=== PATIENT | male | born 1985 | race Caucasian/White ===

== ENCOUNTER 2019-05-20 00:04 | Emergency (ER) | payer OTHER ==
[2019-05-20] MEDS ORDERED: Bacitracin Oint 1 GM U/D Packet TOP ONE (00:29)
--- NOTE | 2019-05-20 00:32 | EDM.PDOC ---
ED HPI GENERAL MEDICAL PROBLEM - General Chief Complaint: Upper Extremity Injury/Pain Stated Complaint: STAPLE IN RIGHT RING FINGER Time Seen by Provider: 05/20/19 00:30 Source of Information: Reports: Patient History Limitations: Reports: No Limitations - History of Present Illness INITIAL COMMENTS - FREE TEXT/NARRATIVE: 33-year-old male accidentally shot a staple through the distal ring finger on his right hand. This occurred less than 1 hour prior to coming in. His tetanus status is current. Onset: Sudden Duration: Hour(s): (1 hour ago) Location: Reports: Upper Extremity, Right Associated Symptoms: Reports: No Other Symptoms Right Finger-Ring Pain Score (Numeric/FACES): 5 - Related Data Allergies Allergy/AdvReac Type Severity Reaction Status Date / Time Penicillins Allergy Rash Verified 05/20/19 00:29 Home Meds: Home Meds NK [No Known Home Meds] 05/20/19 [History] Review of Systems - Review of Systems Review Of Systems: See Below Constitutional: Denies: Fever Respiratory: Reports: No Symptoms Cardiovascular: Reports: No Symptoms Neurological: Denies: Paresthesia ED EXAM, GENERAL - Physical Exam Exam: See Below Exam Limited By: No Limitations General Appearance: Alert, No Apparent Distress Respiratory/Chest: No Respiratory Distress Extremities: Other (Exam is otherwise limited to the right hand. A fairly large industrial staple is embedded into the palmar aspect of the ring finger at the PIP joint towards the ulnar side.) Course - Vital Signs Last Recorded V/S: Last Vital Signs Temp 97.1 F 05/20/19 00:36 Pulse 68 05/20/19 00:36 Resp 17 05/20/19 00:36 BP 111/72 05/20/19 00:36 Pulse Ox 97 05/20/19 00:36 - Orders/Labs/Meds Meds: Medications Discontinued Medications Generic Name Dose Route Start Last Admin Trade Name Freq PRN Reason Stop Dose Admin Bacitracin 1 dose 05/20/19 00:29 05/20/19 00:54 Bacitracin Oint 1 Gm TOP 05/20/19 00:30 1 dose ONETIME ONE Administration Lidocaine HCl 5 ml 05/20/19 00:29 05/20/19 00:54 Xylocaine-Mpf 1% INJECT 05/20/19 00:30 5 ml ONETIME ONE Administration - Re-Assessments/Exams Free Text/Narrative Re-Assessment/Exam: 05/20/19 00:49 The finger was sterilized with Betadine and alcohol, infiltrated with 1% lidocaine and then using a needle moreno the staple was removed without difficulty. There was no bony involvement. The area was then cleaned thoroughly with alcohol, topical bacitracin and a Band-Aid was applied. He will be placed on cephalexin 500 mg 3 times a day for the next 5 to 7 days, and encouraged to keep the wound clean while healing. Departure - Departure Time of Disposition: 01:00 Disposition: Home, Self-Care 01 Clinical Impression: Foreign body of finger - Discharge Information Instructions: Puncture Wound, [id number] Referrals: PCP,None [Primary Care Provider] - Forms: ED Department Discharge Care Plan Goals: Keep the wound covered and clean while healing. Increase activity as tolerated and take 1 dose of antibiotic 3 times a day for at least 5 days. Recheck if concerns of infection or not healing satisfactorily. Sepsis Event Note - Focused Exam Date Exam was Performed: 05/20/19 Time Exam was Performed: 17:29
== END 2019-05-20 01:00 | disposition home or self-care (01) ==
LOC: JP.ED 00:04
DX: S60.454A Superficial foreign body of right ring finger, initial encounter (principal); Z88.0 Allergy status to penicillin; W45.8XXA Other foreign body or object entering through skin, initial encounter
CPT/HCPCS: 64450; 99283; J2001